=== PATIENT | female | born 1960 | race Caucasian/White ===

== ENCOUNTER 2023-09-14 08:00 | Outpatient (RCR) | payer BC | END 2023-10-12 | LOC: PT | DX: M51.34 Other intervertebral disc degeneration, thoracic region (principal); R53.1 Weakness; M25.551 Pain in right hip ==

== ENCOUNTER → 2023-10-24 | Outpatient (CLI) | payer BC | LOC: LAB 10:34 | DX: L08.9 Local infection of the skin and subcutaneous tissue, unspecified (principal) ==